=== PATIENT | male | born 1960 | race Caucasian/White ===

== ENCOUNTER 2023-04-19 14:58 | Inpatient (IN) | payer BC ==
[~2023-04-19] VITALS: Ht 180.3 cm; Wt 94.0 kg
[2023-04-19 16:08] LABS: Basophils # (auto) 0.1 10 ^3/uL (0-0.2); Basophils % (auto) 0.6 % (0.0-2.0); Eosinophils # (auto) 0.1 10 ^3/uL (0-0.8); Eosinophils % (auto) 1.1 % (0.0-7.0); Hematocrit 46.9 % (41.0-53.0); Hemoglobin 15.1 g/dL (13.5-17.5); Lymphocytes # (auto) 2.4 10 ^3/uL (0.4-5.4); Lymphocytes % (auto) 17.5 % (10.0-50.0); Mean Corpuscular Hemoglobin 30.7 pg (28.0-32.0); Mean Corpuscular Hgb Conc. 32.3 g/dL (32.0-36.0); Mean Corpuscular Volume 95.2 fL (80.0-100.0); Monocytes # (auto) 1.3 10 ^3/uL (0-1.3); Monocytes % (auto) 9.3 % (0.0-12.0); Neutrophils # (auto) 9.8 10 ^3/uL (1.6-8.6); Neutrophils % (auto) 71.5 % (37.0-80.0); Red Blood Cells 4.92 10^6/uL (4.5-5.90); White Blood Cell 13.7 10^3/uL (4.4-10.8)
[2023-04-19] MEDS: cefTRIAXone 1GM/50ML D5W 50 ML IV ONE (16:11)
[2023-04-19 16:29] LABS: Alanine Aminotransferase 23 U/L (7-40); Albumin 4.6 g/dL (3.2-4.8); Alkaline Phosphatase 96 U/L (46-116); Anion Gap 6 (5-15); Aspartate Aminotransferase 22 U/L (13-40); BUN/Creatinine Ratio 9.9 (10.0-20.0); Bilirubin, Total 0.8 mg/dL (0.2-1.0); Blood Urea Nitrogen 9 mg/dL (9-23); Calcium 9.8 mg/dL (8.7-10.4); Carbon Dioxide 28 mmol/L (20-30); Chloride 105 mmol/L (98-107); Glucose 90 mg/dL (74-106); Sodium 139 mmol/L (136-145); Total Protein 7.7 g/dL (5.7-8.2)
[2023-04-19] MEDS ORDERED: MORPHINE SULFATE INJ 2 MG/ml SYRG IV PRN (16:45)
[2023-04-19] MEDS ORDERED: DOCUSATE SOD 100 MG CAP PO PRN (16:45)
[2023-04-19] MEDS: metroNIDAZOLE 500MG/100ML 100 ML IV ONE (17:15)
[2023-04-19 17:37] LABS: INR 1.05 (0.9-1.15); Partial Thromboplastin Time 30.5 SEC (24.5-34.5)
[2023-04-19] MEDS: SODIUM CHLORIDE 0.9% 1,000 ML IV SCH (17:55)
[2023-04-19] MEDS: ONDANSETRON HCL 4 MG/2 ML VIAL IV PRN (18:50)
[2023-04-19] MEDS: MORPHINE SULFATE INJ 2 MG/ml SYRG IV PRN (18:55)
[2023-04-19 19:54] VITALS: PULSE 83; RESP 14; O2SAT 96
[2023-04-19 21:07] LABS: Urine Bacteria FEW /hpf (None Seen); Urine Blood Negative /uL (Negative); Urine Clarity Clear (Clear); Urine Color Yellow (Yellow); Urine Hyaline Cast FEW /lpf (0 - 2); Urine Mucus FEW (None Seen); Urine Protein, UAD Negative (Negative); Urine Specific Gravity 1.016 (1.001-1.035); Urine Urobilinogen Normal (Negative); Urine WBC 1 /hpf (0 - 3); Urine pH 5.5 (5.0-8.0)
[2023-04-19] MEDS: metroNIDAZOLE 500MG/100ML 100 ML IV SCH (21:42)
[2023-04-19 22:45] VITALS: BP 133/80; PULSE 80; RESP 18; TEMP 98.5; O2SAT 97
[2023-04-19 23:00] VITALS: BP 133/80; PULSE 81; RESP 20; TEMP 98.5; O2SAT 97
[2023-04-20 05:13] VITALS: BP 121/67; PULSE 86; RESP 20; TEMP 98.6; O2SAT 92
[2023-04-20 05:55] LABS: Basophils # (auto) 0 10 ^3/uL (0-0.2); Basophils % (auto) 0.3 % (0.0-2.0); Eosinophils # (auto) 0 10 ^3/uL (0-0.8); Eosinophils % (auto) 0.3 % (0.0-7.0); Hemoglobin 13.4 g/dL (13.5-17.5); Lymphocytes # (auto) 1.2 10 ^3/uL (0.4-5.4); Lymphocytes % (auto) 10.7 % (10.0-50.0); Mean Corpuscular Hemoglobin 31.3 pg (28.0-32.0); Mean Corpuscular Hgb Conc. 32.8 g/dL (32.0-36.0); Mean Corpuscular Volume 95.5 fL (80.0-100.0); Monocytes # (auto) 1.2 10 ^3/uL (0-1.3); Neutrophils # (auto) 8.4 10 ^3/uL (1.6-8.6); Neutrophils % (auto) 77.7 % (37.0-80.0); Red Blood Cells 4.29 10^6/uL (4.5-5.90); Red Cell Distribution Width 14.8 % (11.8-14.3); White Blood Cell 10.8 10^3/uL (4.4-10.8)
[2023-04-20 06:19] LABS: Alanine Aminotransferase 15 U/L (7-40); Albumin 3.8 g/dL (3.2-4.8); Alkaline Phosphatase 77 U/L (46-116); Anion Gap 8 (5-15); Aspartate Aminotransferase 20 U/L (13-40); BUN/Creatinine Ratio 11.5 (10.0-20.0); Bilirubin, Total 0.8 mg/dL (0.2-1.0); Blood Urea Nitrogen 10 mg/dL (9-23); Calcium 9.1 mg/dL (8.5-10.1); Carbon Dioxide 25 mmol/L (20-30); Chloride 107 mmol/L (98-107); Glucose 91 mg/dL (74-106); Potassium 3.9 mmol/L (3.5-5.1); Sodium 140 mmol/L (136-145); Total Protein 6.2 g/dL (5.7-8.2)
[2023-04-20] MEDS ORDERED: CIPROFLOXACIN 400MG/200ML 200 ML IV ONE (07:02)
[2023-04-20] MEDS ORDERED: GLYCOPYRROLATE 0.2 MG/ML 1ML VIAL ONE (07:14)
[2023-04-20] MEDS ORDERED: DexAMETHasone SOD PHOS 10MG/1ML VIAL INJ ONE (07:14)
[2023-04-20] MEDS ORDERED: ROCURONIUM 10MG/ML 10ML VIAL IV ONE (07:14)
[2023-04-20] MEDS ORDERED: KETAMINE 50mg/ML 1ml syringe ONE (07:14)
[2023-04-20] MEDS ORDERED: fentaNYL CITRATE 100 MCG/2 ML VL ONE (07:14)
[2023-04-20] MEDS ORDERED: MEPERIDINE HCL (50 MG/ML) 1 ML VIAL ONE (07:14)
[2023-04-20] MEDS ORDERED: SUCCINYLCHOLINE CHLORIDE 20 MG/ML 10ML VIAL IV ONE (07:14)
[2023-04-20] MEDS ORDERED: ONDANSETRON HCL 4 MG/2 ML VIAL ONE (07:14)
[2023-04-20] MEDS ORDERED: NEOSTIGMINE 1 MG/ML INJ (10mg/10ML VIAL) ONE (07:14)
[2023-04-20] MEDS ORDERED: SODIUM CHLORIDE LOCK 10 ML ONE (07:14)
[2023-04-20] MEDS ORDERED: MIDAZOLAM HCL 2MG/2ML 2ml VIAL (1mg/ml) ONE (07:14)
[2023-04-20] MEDS ORDERED: HYDROmorphone HCL 2 MG/ML VL/or syr IV PRN (07:30)
[2023-04-20] MEDS ORDERED: METOCLOPRAMIDE HCL 5MG/ml INJ 2ml VIAL IV PRN (07:30)
[2023-04-20] MEDS ORDERED: MORPHINE SULFATE INJ 2 MG/ml SYRG IV PRN (07:30)
[2023-04-20] MEDS ORDERED: KETOROLAC TROMETH 30 MG/ML 1ML VIAL ONE ×2 (08:22)
[2023-04-20] MEDS: LIDOCAINE W/ EPINEPHRINE 1% 20ML VIAL ONE (08:25)
[2023-04-20 08:29] VITALS: O2SAT 100
[2023-04-20] MEDS: HYDROmorphone HCL 2 MG/ML VL/or syr IV PRN (08:42)
[2023-04-20] MEDS: LABETALOL HCL 5 MG/ML 4ML SYRINGE IV ONE (09:15)
[2023-04-20] MEDS: cefTRIAXone 2GM/50ML D5W 50 ML IV SCH (11:26)
[2023-04-20] MEDS: SODIUM CHLORIDE 0.9% 1,000 ML IV SCH (11:26)
[2023-04-20] MEDS: PANTOPRAZOLE 40 MG/10 ML VIAL INJ IV SCH (11:26)
[2023-04-20 13:00] VITALS: BP 99/68; PULSE 68; RESP 16; TEMP 97.8; O2SAT 99
[2023-04-20] MEDS: ACETAMINOPHEN 325 MG TAB PO PRN (15:39)
[2023-04-20 17:00] VITALS: BP 119/61; PULSE 90; RESP 16; TEMP 98.1; O2SAT 96
[2023-04-20 20:00] VITALS: BP 118/57; PULSE 89; RESP 18; TEMP 98.6; O2SAT 92
[2023-04-20 22:00] VITALS: BP 118/57; PULSE 89; RESP 18; TEMP 98.6; O2SAT 92
[2023-04-21 05:05] VITALS: BP 142/78; PULSE 86; RESP 18; TEMP 99; O2SAT 94
[2023-04-21] MEDS: HYDROcodone-ACET 5/325MG TAB PO PRN (05:49)
[2023-04-21 06:09] LABS: Basophils # (auto) 0 10 ^3/uL (0-0.2); Basophils % (auto) 0.1 % (0.0-2.0); Eosinophils # (auto) 0 10 ^3/uL (0-0.8); Eosinophils % (auto) 0.2 % (0.0-7.0); Hematocrit 39.5 % (41.0-53.0); Hemoglobin 12.8 g/dL (13.5-17.5); Lymphocytes % (auto) 9.1 % (10.0-50.0); Mean Corpuscular Hgb Conc. 32.5 g/dL (32.0-36.0); Mean Corpuscular Volume 95.6 fL (80.0-100.0); Monocytes # (auto) 1.1 10 ^3/uL (0-1.3); Monocytes % (auto) 10.1 % (0.0-12.0); Neutrophils % (auto) 80.5 % (37.0-80.0); Red Blood Cells 4.13 10^6/uL (4.5-5.90); Red Cell Distribution Width 14.9 % (11.8-14.3); White Blood Cell 11.1 10^3/uL (4.4-10.8)
[2023-04-21 06:16] LABS: Anion Gap 6 (5-15); Calcium 8.9 mg/dL (8.5-10.1); Carbon Dioxide 27 mmol/L (20-30); Chloride 104 mmol/L (98-107); Potassium 4.3 mmol/L (3.5-5.1); Sodium 137 mmol/L (136-145)
[2023-04-21 06:22] LABS: BUN/Creatinine Ratio 8.1 (10.0-20.0); Blood Urea Nitrogen 7 mg/dL (9-23); Glucose 98 mg/dL (74-106)
[2023-04-21 08:46] VITALS: BP 136/69; PULSE 82; RESP 15; TEMP 98; O2SAT 93
[2023-04-21] MEDS: POTASSIUM CHL 20 Meq TABLET PO ONE (11:08)
[2023-04-21] MEDS: FUROSEMIDE 20 MG/2 ML VIAL IV ONE (11:08)
[2023-04-21 13:00] VITALS: BP 142/80; PULSE 62; RESP 16; TEMP 98.3; O2SAT 93
[2023-04-21 16:25] VITALS: BP 134/68; PULSE 96; RESP 17; TEMP 98.2; O2SAT 91
[2023-04-21 20:00] VITALS: BP 127/74; PULSE 96; RESP 17; RESP 18; TEMP 99; O2SAT 92
[2023-04-21 22:00] VITALS: BP 127/74; PULSE 102; RESP 18; TEMP 99; O2SAT 92
[2023-04-22 05:00] VITALS: BP 115/74; PULSE 76; RESP 17; TEMP 98.1; O2SAT 94
[2023-04-22 06:17] LABS: Basophils # (auto) 0 10 ^3/uL (0-0.2); Basophils % (auto) 0.3 % (0.0-2.0); Eosinophils # (auto) 0.2 10 ^3/uL (0-0.8); Eosinophils % (auto) 2.5 % (0.0-7.0); Hemoglobin 12.8 g/dL (13.5-17.5); Lymphocytes # (auto) 1.8 10 ^3/uL (0.4-5.4); Lymphocytes % (auto) 18.4 % (10.0-50.0); Mean Corpuscular Hemoglobin 31.2 pg (28.0-32.0); Mean Corpuscular Hgb Conc. 32.9 g/dL (32.0-36.0); Monocytes # (auto) 1.1 10 ^3/uL (0-1.3); Neutrophils # (auto) 6.5 10 ^3/uL (1.6-8.6); Neutrophils % (auto) 67.8 % (37.0-80.0); Nucleated Red Blood Cells % 0.1 %; Red Cell Distribution Width 14.5 % (11.8-14.3); White Blood Cell 9.5 10^3/uL (4.4-10.8)
[2023-04-22 06:26] LABS: Calcium 9.1 mg/dL (8.5-10.1); Chloride 104 mmol/L (98-107); Potassium 3.7 mmol/L (3.5-5.1); Sodium 139 mmol/L (136-145)
[2023-04-22 06:27] LABS: Anion Gap 7 (5-15); Carbon Dioxide 28 mmol/L (20-30)
[2023-04-22 06:32] LABS: BUN/Creatinine Ratio 9.1 (10.0-20.0); Blood Urea Nitrogen 7 mg/dL (9-23); Glucose 85 mg/dL (74-106)
[2023-04-22 09:00] VITALS: BP 140/81; PULSE 87; RESP 20; TEMP 97.7; O2SAT 92
[2023-04-22] MEDS ORDERED: LEVO500T91 PO (09:26)
[2023-04-22] MEDS ORDERED: DOCU-94 PO (09:26)
[2023-04-22] MEDS ORDERED: TRAM50TA2 PO (09:26)
[2023-04-22] MEDS ORDERED: MET500T PO (09:26)
[2023-04-22 13:00] VITALS: BP 145/87; PULSE 77; RESP 18; TEMP 97.7; O2SAT 93
== END 2023-04-22 14:32 | disposition home or self-care (01) | DRG 854 ==
LOC: ER 14:58 → OVERFLOW 16:47 → CENTRAL 22:45
PROVIDERS: ADMIT Nurse Practitioner Family; ATTEND Internal Medicine
PROC: 0DTJ4ZZ Resection of Appendix, Percutaneous Endoscopic Approach (ICD-10-PCS; principal; 2023-04-20 07:30)
DX: A41.9 Sepsis, unspecified organism (principal); K35.80 Unspecified acute appendicitis; K57.30 Diverticulosis of large intestine without perforation or abscess without bleeding; E87.70 Fluid overload, unspecified; Z90.49 Acquired absence of other specified parts of digestive tract
CPT/HCPCS: 36415; 71045; 74176; 80048; 80053; 81001; 83605; 85025; 85610; 85730; 86850; 86900; 86901; 87040; 97110; 97116; 97163; 99291; C9113; G0378; J0330; J1100; J1885; J2250; J2405; J3490

== ENCOUNTER 2023-09-03 12:15 | Emergency (ER) | payer BC ==
[~2023-09-03] VITALS: Ht 180.3 cm; Wt 87.6 kg
[~2023-09-03 12:15] MED LIST: DOCU-94 PO; LEVO500T91 PO; MET500T PO; TRAM50TA2 PO
[2023-09-03 12:59] VITALS: PULSE 74; RESP 18; O2SAT 98
[2023-09-03] MEDS: SODIUM CHLORIDE 0.9% 1,000 ML IV ONE (13:08)
[2023-09-03 13:24] LABS: Basophils # (auto) 0 10 ^3/uL (0-0.2); Basophils % (auto) 0.6 % (0.0-2.0); Eosinophils # (auto) 0.1 10 ^3/uL (0-0.8); Eosinophils % (auto) 1.1 % (0.0-7.0); Hematocrit 45.5 % (41.0-53.0); Hemoglobin 15.7 g/dL (13.5-17.5); Lymphocytes # (auto) 1.8 10 ^3/uL (0.4-5.4); Lymphocytes % (auto) 22.9 % (10.0-50.0); Mean Corpuscular Hemoglobin 32.2 pg (28.0-32.0); Mean Corpuscular Hgb Conc. 34.5 g/dL (32.0-36.0); Mean Corpuscular Volume 93.6 fL (80.0-100.0); Monocytes # (auto) 0.8 10 ^3/uL (0-1.3); Monocytes % (auto) 10.5 % (0.0-12.0); Neutrophils # (auto) 5.1 10 ^3/uL (1.6-8.6); Neutrophils % (auto) 64.9 % (37.0-80.0); Red Blood Cells 4.86 10^6/uL (4.5-5.90); Red Cell Distribution Width 15.1 % (11.8-14.3); White Blood Cell 7.9 10^3/uL (4.4-10.8)
[2023-09-03 13:38] LABS: Alanine Aminotransferase 36 U/L (7-40); Alkaline Phosphatase 95 U/L (46-116); Anion Gap 5 (5-15); Aspartate Aminotransferase 30 U/L (13-40); BUN/Creatinine Ratio 15.9 (10.0-20.0); Blood Urea Nitrogen 13 mg/dL (9-23); Calcium 9.7 mg/dL (8.7-10.4); Carbon Dioxide 25 mmol/L (20-30); Chloride 104 mmol/L (98-107); Glucose 100 mg/dL (74-106); Sodium 134 mmol/L (136-145)
[2023-09-03 13:39] LABS: Albumin 4.3 g/dL (3.2-4.8); Bilirubin, Total 0.3 mg/dL (0.2-1.0); Total Protein 7.4 g/dL (5.7-8.2)
[2023-09-03 14:16] VITALS: PULSE 68; RESP 14; TEMP 97.6; O2SAT 98
[2023-09-03 14:42] VITALS: BP 130/82
== END 2023-09-03 14:43 | disposition home or self-care (01) ==
LOC: ER 12:15
DX: K52.9 Noninfective gastroenteritis and colitis, unspecified (principal); E86.0 Dehydration; Z79.899 Other long term (current) drug therapy; Z90.49 Acquired absence of other specified parts of digestive tract
CPT/HCPCS: 36415; 80053; 85025; 96360; 99283; J7030